=== PATIENT | male | born 1950 | race Caucasian/White ===

== ENCOUNTER 2017-06-21 10:45 | Inpatient (IN) | payer OTHER ==
[2017-06-21 11:49] VITALS: BMI 24.2
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
[2017-06-21] MEDS ORDERED: hydrOXYzine PAMOATE 50 MG CAPSULE (FP) PO PRN (16:06)
[2017-06-21] MEDS ORDERED: ACETAMINOPHEN 325 MG TABLET (FP) PO PRN (16:06)
[2017-06-21] MEDS ORDERED: MAG HYDROX/AL HYDROX/SIMETH 30 ML UNIT-DOSE CUP PO PRN (16:06)
[2017-06-21] MEDS ORDERED: MENTHOL/PHENOL 1 EACH UD MM PRN (16:06)
[2017-06-21] MEDS ORDERED: guaiFENesin/D-METHORPHAN HB 10 ML UNIT-DOSE CUPS PO PRN (16:06)
[2017-06-21] MEDS ORDERED: IBUPROFEN 400 MG TABLET (FP) PO PRN (16:06)
[2017-06-21] MEDS ORDERED: MAGNESIUM CITRATE 300 ML BOTTLE PO PRN (16:06)
[2017-06-21] MEDS ORDERED: MAGNESIUM HYDROX 2400MG/30ML ORAL SUSPENSION 30 ML CUP PO PRN (16:06)
[2017-06-21] MEDS ORDERED: P-EPHED 60MG/TRIPROLIDI 2.5MG TABLET PO PRN (16:06)
[2017-06-21 21:56] LABS: URINE APPEARANCE CLEAR; URINE BILIRUBIN NEGATIVE (NEGATIVE); URINE BLOOD NEGATIVE (NEGATIVE); URINE COLOR YELLOW; URINE GLUCOSE (UA) NEGATIVE (NEGATIVE); URINE KETONE NEGATIVE (NEGATIVE); URINE LEUK ESTERASE TRACE (NEGATIVE); URINE NITRITE NEGATIVE (NEGATIVE); URINE PROTEIN NEGATIVE (NEGATIVE); URINE UROBILINOGEN NEGATIVE mg/dL (0.2-1.0)
[2017-06-21 22:12] LABS: URINE BACTERIA RARE /hpf (NONE SEEN); URINE MUCUS RARE; URINE RBC 1 /hpf (0-3); URINE WBC 1 /hpf (3-5)
[2017-06-21] MEDS: THIAMINE HCL 100 MG TABLET (FP) PO SCH (23:21)
[2017-06-22] MEDS: LOPERAMIDE HCL 2 MG CAPSULE PO PRN ×2 (06:38→21:06)
[2017-06-22] MEDS ORDERED: METHADONE HCL 10 MG TABLET PO ONE (07:34)
[2017-06-22] MEDS ORDERED: METHADONE HCL 10 MG TABLET ONE (08:25)
[2017-06-22] MEDS ORDERED: METHADONE HCL 40 MG DISPERSABLE TABLET ONE (08:26)
[2017-06-22] MEDS: METHADONE 80 MG, METHADONE 20 MG PO SCH (08:27)
[2017-06-22] MEDS: PRENATAL VITAMINS W/ FOLIC ACID TABLET (FP) PO SCH (09:40)
[2017-06-22] MEDS: NICOTINE 21 MG/24 HOURS TOPICAL PATCH TD SCH (09:41)
[2017-06-22 10:41] LABS: MCH 30.8 pg (25.7-33.7); MCHC 33.2 g/dl (32.0-35.9); MEAN CELL VOLUME 92.9 fl (80-96); MEAN PLT VOLUME 11.1 fl (7.5-11.1); PLATELET COUNT 127 K/MM3 (134-434); RDW 13.6 % (11.9-15.9); WHITE BLOOD COUNT 5.5 K/mm3 (4.0-10.0)
[2017-06-22 10:56] LABS: ALBUMIN 3.5 g/dl (3.4-5.0); ALK PHOS 91 U/L (45-117); ANION GAP 6 (8-16); BILIRUBIN,TOTAL 0.4 mg/dL (0.2-1.0); CO2 28 mmol/L (21-32); CREATININE 0.9 mg/dL (0.7-1.3); GLUCOSE,RANDOM 90 mg/dL (74-106); SGOT/AST 22 U/L (15-37); SGPT/ALT 16 U/L (12-78); TOT PROT 8.1 g/dl (6.4-8.2)
[2017-06-22] MEDS: THIAMINE HCL 100 MG TABLET (FP) PO SCH (21:04)
[2017-06-22] MEDS: diphenhydrAMINE HCL 50 MG CAPSULE PO PRN (21:05)
[2017-06-23] MEDS ORDERED: METHADONE HCL 40 MG DISPERSABLE TABLET ONE (03:01)
[2017-06-23] MEDS ORDERED: METHADONE HCL 10 MG TABLET ONE (03:01)
[2017-06-23] MEDS ORDERED: METHADONE HCL 10 MG TABLET PO SCH (06:00)
[2017-06-23] MEDS: METHADONE 80 MG, METHADONE 20 MG PO SCH (06:30)
[2017-06-23] MEDS: LOPERAMIDE HCL 2 MG CAPSULE PO PRN ×2 (06:32→21:07)
[2017-06-23] MEDS: NICOTINE 21 MG/24 HOURS TOPICAL PATCH TD SCH (09:45)
[2017-06-23] MEDS: PRENATAL VITAMINS W/ FOLIC ACID TABLET (FP) PO SCH (09:45)
[2017-06-23] MEDS: NICOTINE POLACRILEX 4 MG GUM BUC PRN (09:47)
[2017-06-23] MEDS: diphenhydrAMINE HCL 50 MG CAPSULE PO PRN (21:07)
[2017-06-23] MEDS: THIAMINE HCL 100 MG TABLET (FP) PO SCH (21:07)
[2017-06-24] MEDS ORDERED: METHADONE HCL 10 MG TABLET ONE (03:12)
[2017-06-24] MEDS ORDERED: METHADONE HCL 40 MG DISPERSABLE TABLET ONE (03:13)
[2017-06-24] MEDS: METHADONE 80 MG, METHADONE 20 MG PO SCH (06:21)
[2017-06-24] MEDS: PRENATAL VITAMINS W/ FOLIC ACID TABLET (FP) PO SCH (09:41)
[2017-06-24] MEDS: NICOTINE 21 MG/24 HOURS TOPICAL PATCH TD SCH (09:41)
[2017-06-24] MEDS: NICOTINE POLACRILEX 4 MG GUM BUC PRN (09:42)
--- NOTE | 2017-06-24 09:59 | EKG ---
Test Reason : Blood Pressure : / mmHG Vent. Rate : 065 BPM Atrial Rate : 065 BPM P-R Int : 136 ms QRS Dur : 084 ms QT Int : 430 ms P-R-T Axes : 079 070 050 degrees QTc Int : 447 ms NORMAL SINUS RHYTHM NORMAL ECG NO PREVIOUS ECGS AVAILABLE Confirmed by THEA TOVAR MD ([id number]) on 06/24/2017 9:59:03 AM Referred By: Confirmed By:THEA TOVAR MD
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
[2017-06-24] MEDS: THIAMINE HCL 100 MG TABLET (FP) PO SCH (21:06)
[2017-06-24] MEDS: LOPERAMIDE HCL 2 MG CAPSULE PO PRN (21:07)
[2017-06-25] MEDS ORDERED: METHADONE HCL 10 MG TABLET ONE (03:16)
[2017-06-25] MEDS ORDERED: METHADONE HCL 40 MG DISPERSABLE TABLET ONE (03:16)
[2017-06-25] MEDS: METHADONE 80 MG, METHADONE 20 MG PO SCH (06:06)
[2017-06-25] MEDS: PRENATAL VITAMINS W/ FOLIC ACID TABLET (FP) PO SCH (10:14)
[2017-06-25] MEDS: NICOTINE 21 MG/24 HOURS TOPICAL PATCH TD SCH ×2 (10:14→10:17)
[2017-06-25] MEDS: THIAMINE HCL 100 MG TABLET (FP) PO SCH (21:10)
[2017-06-25] MEDS: diphenhydrAMINE HCL 50 MG CAPSULE PO PRN (21:11)
[2017-06-26] MEDS ORDERED: METHADONE HCL 40 MG DISPERSABLE TABLET ONE (03:24)
[2017-06-26] MEDS ORDERED: METHADONE HCL 10 MG TABLET ONE (03:24)
[2017-06-26] MEDS: METHADONE 80 MG, METHADONE 20 MG PO SCH (06:31)
[2017-06-26] MEDS: PRENATAL VITAMINS W/ FOLIC ACID TABLET (FP) PO SCH (09:41)
[2017-06-26] MEDS: NICOTINE 21 MG/24 HOURS TOPICAL PATCH TD SCH (09:42)
[2017-06-26] MEDS: NICOTINE POLACRILEX 4 MG GUM BUC PRN (09:44)
[2017-06-26] MEDS: diphenhydrAMINE HCL 50 MG CAPSULE PO PRN (21:19)
[2017-06-26] MEDS: THIAMINE HCL 100 MG TABLET (FP) PO SCH (21:19)
[2017-06-26] MEDS: LOPERAMIDE HCL 2 MG CAPSULE PO PRN (22:08)
[2017-06-27] MEDS ORDERED: METHADONE HCL 40 MG DISPERSABLE TABLET ONE (05:00)
[2017-06-27] MEDS ORDERED: METHADONE HCL 10 MG TABLET ONE (05:00)
[2017-06-27] MEDS: METHADONE 80 MG, METHADONE 20 MG PO SCH (06:28)
[2017-06-27] MEDS: PRENATAL VITAMINS W/ FOLIC ACID TABLET (FP) PO SCH (09:46)
[2017-06-27] MEDS: NICOTINE 21 MG/24 HOURS TOPICAL PATCH TD SCH (09:46)
[2017-06-27] MEDS: NICOTINE POLACRILEX 4 MG GUM BUC PRN (09:47)
[2017-06-27] MEDS: THIAMINE HCL 100 MG TABLET (FP) PO SCH (21:09)
[2017-06-27] MEDS: diphenhydrAMINE HCL 50 MG CAPSULE PO PRN (21:10)
[2017-06-28] MEDS ORDERED: METHADONE HCL 10 MG TABLET ONE (04:06)
[2017-06-28] MEDS ORDERED: METHADONE HCL 40 MG DISPERSABLE TABLET ONE (04:06)
[2017-06-28] MEDS: METHADONE 80 MG, METHADONE 20 MG PO SCH (06:20)
[2017-06-28] MEDS: PRENATAL VITAMINS W/ FOLIC ACID TABLET (FP) PO SCH (09:28)
[2017-06-28] MEDS: NICOTINE 21 MG/24 HOURS TOPICAL PATCH TD SCH (09:28)
[2017-06-28] MEDS: THIAMINE HCL 100 MG TABLET (FP) PO SCH (21:06)
[2017-06-28] MEDS: diphenhydrAMINE HCL 50 MG CAPSULE PO PRN (21:07)
[2017-06-29] MEDS ORDERED: METHADONE HCL 10 MG TABLET PO SCH (06:00)
[2017-06-29] MEDS ORDERED: METHADONE HCL 10 MG TABLET ONE (06:15)
[2017-06-29] MEDS ORDERED: METHADONE HCL 40 MG DISPERSABLE TABLET ONE (06:16)
[2017-06-29] MEDS: METHADONE 80 MG, METHADONE 20 MG PO SCH (06:41)
[2017-06-29] MEDS: NICOTINE 21 MG/24 HOURS TOPICAL PATCH TD SCH (09:42)
[2017-06-29] MEDS: PRENATAL VITAMINS W/ FOLIC ACID TABLET (FP) PO SCH (09:42)
[2017-06-29] MEDS: diphenhydrAMINE HCL 50 MG CAPSULE PO PRN (21:47)
[2017-06-29] MEDS: THIAMINE HCL 100 MG TABLET (FP) PO SCH (21:48)
[2017-06-30] MEDS ORDERED: METHADONE HCL 10 MG TABLET ONE (05:11)
[2017-06-30] MEDS ORDERED: METHADONE HCL 40 MG DISPERSABLE TABLET ONE (05:11)
[2017-06-30] MEDS: METHADONE 80 MG, METHADONE 20 MG PO SCH (06:19)
[2017-06-30] MEDS: PRENATAL VITAMINS W/ FOLIC ACID TABLET (FP) PO SCH (09:52)
[2017-06-30] MEDS: NICOTINE 21 MG/24 HOURS TOPICAL PATCH TD SCH (09:52)
[2017-06-30] MEDS: THIAMINE HCL 100 MG TABLET (FP) PO SCH (21:05)
[2017-06-30] MEDS: diphenhydrAMINE HCL 50 MG CAPSULE PO PRN (21:06)
[2017-07-01] MEDS ORDERED: METHADONE HCL 10 MG TABLET ONE (03:13)
[2017-07-01] MEDS ORDERED: METHADONE HCL 40 MG DISPERSABLE TABLET ONE (03:14)
[2017-07-01] MEDS: METHADONE 80 MG, METHADONE 20 MG PO SCH (06:29)
[2017-07-01] MEDS: NICOTINE 21 MG/24 HOURS TOPICAL PATCH TD SCH (09:58)
[2017-07-01] MEDS: PRENATAL VITAMINS W/ FOLIC ACID TABLET (FP) PO SCH (09:58)
[2017-07-01] MEDS: LOPERAMIDE HCL 2 MG CAPSULE PO PRN ×2 (14:20→21:05)
[2017-07-01] MEDS: THIAMINE HCL 100 MG TABLET (FP) PO SCH (21:05)
[2017-07-01] MEDS: diphenhydrAMINE HCL 50 MG CAPSULE PO PRN (21:05)
[2017-07-02] MEDS ORDERED: METHADONE HCL 10 MG TABLET ONE (03:36)
[2017-07-02] MEDS ORDERED: METHADONE HCL 40 MG DISPERSABLE TABLET ONE (03:37)
[2017-07-02] MEDS: METHADONE 80 MG, METHADONE 20 MG PO SCH (06:48)
[2017-07-02] MEDS: NICOTINE 21 MG/24 HOURS TOPICAL PATCH TD SCH (09:53)
[2017-07-02] MEDS: PRENATAL VITAMINS W/ FOLIC ACID TABLET (FP) PO SCH (09:54)
[2017-07-02] MEDS: THIAMINE HCL 100 MG TABLET (FP) PO SCH (21:10)
[2017-07-02] MEDS: diphenhydrAMINE HCL 50 MG CAPSULE PO PRN (21:11)
[2017-07-03] MEDS ORDERED: METHADONE HCL 10 MG TABLET ONE (03:14)
[2017-07-03] MEDS ORDERED: METHADONE HCL 40 MG DISPERSABLE TABLET ONE (03:15)
[2017-07-03] MEDS: METHADONE 80 MG, METHADONE 20 MG PO SCH (06:44)
[2017-07-03] MEDS: NICOTINE 21 MG/24 HOURS TOPICAL PATCH TD SCH (10:00)
[2017-07-03] MEDS: PRENATAL VITAMINS W/ FOLIC ACID TABLET (FP) PO SCH (10:00)
[2017-07-03] MEDS: THIAMINE HCL 100 MG TABLET (FP) PO SCH (21:05)
[2017-07-03] MEDS: diphenhydrAMINE HCL 50 MG CAPSULE PO PRN (21:05)
[2017-07-04] MEDS: diphenhydrAMINE HCL 50 MG CAPSULE PO PRN ×2 (01:55→21:07)
[2017-07-04] MEDS ORDERED: METHADONE HCL 10 MG TABLET ONE (03:12)
[2017-07-04] MEDS ORDERED: METHADONE HCL 40 MG DISPERSABLE TABLET ONE (03:12)
[2017-07-04] MEDS: METHADONE 80 MG, METHADONE 20 MG PO SCH (06:34)
[2017-07-04] MEDS: NICOTINE POLACRILEX 4 MG GUM BUC PRN (09:05)
[2017-07-04] MEDS: NICOTINE 21 MG/24 HOURS TOPICAL PATCH TD SCH (09:42)
[2017-07-04] MEDS: PRENATAL VITAMINS W/ FOLIC ACID TABLET (FP) PO SCH (09:42)
[2017-07-04] MEDS: THIAMINE HCL 100 MG TABLET (FP) PO SCH (21:07)
[2017-07-05] MEDS ORDERED: METHADONE HCL 40 MG DISPERSABLE TABLET ONE (05:01)
[2017-07-05] MEDS ORDERED: METHADONE HCL 10 MG TABLET ONE (05:01)
[2017-07-05] MEDS: METHADONE 80 MG, METHADONE 20 MG PO SCH (06:35)
[2017-07-05] MEDS: NICOTINE 21 MG/24 HOURS TOPICAL PATCH TD SCH (09:37)
[2017-07-05] MEDS: PRENATAL VITAMINS W/ FOLIC ACID TABLET (FP) PO SCH (09:37)
[2017-07-05] MEDS: THIAMINE HCL 100 MG TABLET (FP) PO SCH (21:06)
[2017-07-05] MEDS: diphenhydrAMINE HCL 50 MG CAPSULE PO PRN (21:06)
[2017-07-06] MEDS ORDERED: METHADONE HCL 10 MG TABLET ONE (03:01)
[2017-07-06] MEDS ORDERED: METHADONE HCL 40 MG DISPERSABLE TABLET ONE (03:02)
[2017-07-06] MEDS: METHADONE 80 MG, METHADONE 20 MG PO SCH (06:18)
[2017-07-06] MEDS: PRENATAL VITAMINS W/ FOLIC ACID TABLET (FP) PO SCH (09:33)
[2017-07-06] MEDS: NICOTINE 21 MG/24 HOURS TOPICAL PATCH TD SCH (09:33)
[2017-07-06] MEDS: diphenhydrAMINE HCL 50 MG CAPSULE PO PRN (21:18)
[2017-07-06] MEDS: THIAMINE HCL 100 MG TABLET (FP) PO SCH (21:18)
[2017-07-07] MEDS ORDERED: METHADONE HCL 10 MG TABLET ONE (03:40)
[2017-07-07] MEDS ORDERED: METHADONE HCL 40 MG DISPERSABLE TABLET ONE (03:41)
[2017-07-07] MEDS: METHADONE 80 MG, METHADONE 20 MG PO SCH (06:35)
[2017-07-07] MEDS: PRENATAL VITAMINS W/ FOLIC ACID TABLET (FP) PO SCH (09:42)
[2017-07-07] MEDS: NICOTINE 21 MG/24 HOURS TOPICAL PATCH TD SCH (09:42)
[2017-07-07] MEDS: NICOTINE POLACRILEX 4 MG GUM BUC PRN (09:43)
[2017-07-07] MEDS: diphenhydrAMINE HCL 50 MG CAPSULE PO PRN (21:10)
[2017-07-07] MEDS: THIAMINE HCL 100 MG TABLET (FP) PO SCH (21:10)
[2017-07-08] MEDS ORDERED: METHADONE HCL 10 MG TABLET ONE (03:39)
[2017-07-08] MEDS ORDERED: METHADONE HCL 40 MG DISPERSABLE TABLET ONE (03:40)
[2017-07-08] MEDS: METHADONE 80 MG, METHADONE 20 MG PO SCH (06:38)
[2017-07-08 06:57] VITALS: BP 138/82; PULSE 74; TEMP 98.1
--- NOTE | 2017-07-08 09:47 | PN ---
Psychiatric Progress Note Vital Signs: Vital Signs Period Temp Pulse Resp BP Sys/Khan Pulse Ox Last 24 Hr 98.1 F 74 18-18 138/82 Date of Session: 07/08/17 Chief Complaint:: Discharge visit HPI: Patient addressed Opioid and Cocaine dependence . ROS: Significant for Hep C. Current Medications: Active Medications Generic Name Dose Route Start Last Admin Trade Name Freq PRN Reason Stop Dose Admin Acetaminophen 650 mg 06/21/17 16:06 Tylenol - PO Q4H PRN PAIN Al Hydroxide/Mg Hydroxide 30 ml 06/21/17 16:06 Mylanta Oral Suspension - PO Q6H PRN DYSPEPSIA Diphenhydramine HCl 50 mg 06/21/17 16:06 07/07/17 21:10 Benadryl - PO 50 mg HSMR1 PRN Administration INSOMNIA Eucalyptus/Menthol/Phenol/Sorbitol 1 each 06/21/17 16:06 Cepastat Lozenge - MM Q4H PRN SORE THROAT Guaifenesin 10 ml 06/21/17 16:06 Robitussin Dm - PO Q6H PRN COUGH Hydroxyzine Pamoate 50 mg 06/21/17 16:06 Vistaril - PO Q4H PRN AGITATION Ibuprofen 400 mg 06/21/17 16:06 06/26/17 09:43 Motrin - PO 400 mg Q6H PRN Administration SEVERE PAIN Loperamide HCl 4 mg 06/21/17 16:06 07/01/17 21:05 Imodium - PO 4 mg Q6H PRN Administration DIARRHEA Magnesium Citrate 300 ml 06/21/17 16:06 Citroma - PO Q48H PRN CONSTIPATION Magnesium Hydroxide 30 ml 06/21/17 16:06 Milk Of Magnesia - PO DAILY PRN CONSTIPATION Methadone HCl 80 mg/ Methadone 100 mg 07/05/17 06:00 07/08/17 06:38 HCl 20 mg PO 100 mg DAILY@0600 GUMARO Administration Nicotine 21 mg 06/22/17 10:00 07/07/17 09:42 Nicoderm Patch - TD 21 mg DAILY GUMARO Administration Nicotine Polacrilex 4 mg 06/21/17 16:06 07/07/17 09:43 Nicorette Gum - BUC 4 mg Q2H PRN Administration NICOTINE REPLACEMENT RX Multivit/Folic Acid/Iron 1 tab 06/22/17 10:00 07/07/17 09:42 Vitamins ([facility]) - PO 1 tab DAILY GUMARO Administration Pseudoephedrine/Triprolidine 1 combo 06/21/17 16:06 Actifed - PO TID PRN NASAL CONGESTION Thiamine HCl 100 mg 06/21/17 22:00 07/07/17 21:10 Vitamin B1 - PO 100 mg HS GUMARO Administration Current Side Effect: No Lab tests ordered: No Lab tests reviewed: Yes Provider note:: Patient completed this program today.he has met his treatment goals and will continue to address his issues on outpatient basis at [facility] outpatient rehabilitation program and [facility]MTP(100 mg po daily).Patient has no known psychiatric comorbidity.no needs for psychotropic medications at this time ,will use Vistaril prn for anxiety,mood instability. Suportive therapy proivided focusing on support and coping skills utlization to maintain recovery. patient is stable for discharge today. Total face to face time:: 20 Mental Status Exam - Mental Status Exam Alert and Oriented to: Time, Place, Person Cognitive Function: Grossly Intact Patient Appearance: Well Groomed Mood: Euthymic Affect: Mood Congruent Patient Behavior: Cooperative Speech Pattern: Clear Voice Loudness: Normal Thought Process: Goal Oriented Thought Disorder: Not Present Hallucinations: Denies Suicidal Ideation: Denies Homicidal Ideation: Denies Insight/Judgement: Fair Sleep: Well Appetite: Good Muscle strength/Tone: Normal Psychiatric Treatment Plan - Problem List (4) Cocaine dependence Qualifiers: Substance use status: uncomplicated Qualified Code(s): F14.20 - Cocaine dependence, uncomplicated (5) Nicotine dependence Qualifiers: Nicotine product type: cigarettes Substance use status: uncomplicated Qualified Code(s): F17.210 - Nicotine dependence, cigarettes, uncomplicated
[2017-07-08] MEDS: PRENATAL VITAMINS W/ FOLIC ACID TABLET (FP) PO SCH (09:53)
[2017-07-08] MEDS: NICOTINE 21 MG/24 HOURS TOPICAL PATCH TD SCH (09:54)
[2017-07-08] MEDS: NICOTINE POLACRILEX 4 MG GUM BUC PRN (09:55)
== END 2017-07-08 10:30 | disposition home or self-care (01) | DRG 895 ==
LOC: YASAS 10:45 → Y5N 16:02
PROVIDERS: ADMIT Psychiatry & Neurology Psychiatry; ATTEND Psychiatry & Neurology Psychiatry
PROC: HZ42ZZZ Group Counseling for Substance Abuse Treatment, Cognitive-Behavioral (ICD-10-PCS; principal; 2017-06-21)
DX: F11.20 Opioid dependence, uncomplicated (principal); F14.20 Cocaine dependence, uncomplicated; F17.210 Nicotine dependence, cigarettes, uncomplicated; B18.2 Chronic viral hepatitis C; R76.11 Nonspecific reaction to tuberculin skin test without active tuberculosis
CPT/HCPCS: 36415; 71020-TC; 80053; 81003; 81015; 85027; 86593; 93005; 93010

== ENCOUNTER 2018-04-04 12:49 | Inpatient (IN) | payer OTHER ==
[2018-04-04 13:55] VITALS: BP 152/66; PULSE 65; TEMP 97.8; BMI 21.6
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
[2018-04-04] MEDS ORDERED: MAGNESIUM HYDROX 2400MG/30ML ORAL SUSPENSION 30 ML CUP PO PRN (15:31)
[2018-04-04] MEDS ORDERED: MAGNESIUM CITRATE 300 ML BOTTLE PO PRN (15:31)
[2018-04-04] MEDS ORDERED: MENTHOL/PHENOL 1 EACH UD MM PRN (15:31)
[2018-04-04] MEDS ORDERED: MAG HYDROX/AL HYDROX/SIMETH 30 ML UNIT-DOSE CUP PO PRN (15:31)
[2018-04-04] MEDS ORDERED: IBUPROFEN 400 MG TABLET (FP) PO PRN (15:31)
[2018-04-04] MEDS ORDERED: LOPERAMIDE HCL 2 MG CAPSULE PO PRN (16:12)
[2018-04-04] MEDS ORDERED: ACETAMINOPHEN 325 MG TABLET (FP) PO PRN (16:12)
[2018-04-04] MEDS ORDERED: guaiFENesin/D-METHORPHAN HB 10 ML UNIT-DOSE CUPS PO PRN (16:12)
[2018-04-04] MEDS ORDERED: P-EPHED 60MG/TRIPROLIDI 2.5MG TABLET PO PRN (16:13)
[2018-04-04] MEDS ORDERED: NICOTINE POLACRILEX 2 MG GUM BUC PRN (16:13)
[2018-04-04] MEDS ORDERED: NICOTINE 14 MG/24 HOURS TOPICAL PATCH TD SCH (16:15)
[2018-04-04] MEDS ORDERED: MELATONIN 5 MG TABLETS PO PRN (22:00)
[2018-04-04] MEDS ORDERED: THIAMINE HCL 100 MG TABLET (FP) PO SCH (22:00)
--- NOTE | 2018-04-05 01:22 | PN ---
[facility] Progress Note Note: Patient in the course vof admission told the nurse that he fell and hit his head on an object. Patient is being transferred to ER for evaluation. Endorsed to Dr. Hope.
[2018-04-05] MEDS ORDERED: PRENATAL VITAMINS W/ FOLIC ACID TABLET (FP) PO SCH (10:00)
== END 2018-04-05 10:47 | disposition home or self-care (01) | DRG 897 ==
LOC: YASAS 12:49 → Y3W 15:46 → UNDOADMIN 15:46 → Y3N 04-05 00:27
PROVIDERS: ADMIT Internal Medicine; ATTEND Internal Medicine
PROC: HZ2ZZZZ Detoxification Services for Substance Abuse Treatment (ICD-10-PCS; principal; 2018-04-05)
DX: F11.20 Opioid dependence, uncomplicated (principal); F14.20 Cocaine dependence, uncomplicated; F17.213 Nicotine dependence, cigarettes, with withdrawal; B18.2 Chronic viral hepatitis C; R76.11 Nonspecific reaction to tuberculin skin test without active tuberculosis; S09.8XXA Other specified injuries of head, initial encounter; W01.198A Fall on same level from slipping, tripping and stumbling with subsequent striking against other object, initial encounter; Y93.89 Activity, other specified; Y92.89 Other specified places as the place of occurrence of the external cause; Y99.8 Other external cause status

== ENCOUNTER 2018-04-05 02:00 | Emergency (ER) | payer OTHER ==
--- NOTE | 2018-04-05 03:04 | PDOC ---
Attending Attestation - Resident Resident Name: Daniel Hope - ED Attending Attestation I have performed the following: I have examined & evaluated the patient, The case was reviewed & discussed with the resident, I agree w/resident's findings & plan - HPI HPI: 04/05/18 03:22 Pt wants to detox from cocaine and heroin. He is also a methadone user on methadone program. Pt has no other complaints. [facility] here has no beds in detox. Next bed will open up in 4 days. - Physicial Exam PE: 04/05/18 03:23 Agree with resident exam. Pt is ambulating about the ER and is afebrile. - Medical Decision Making 04/05/18 03:23 We are calling detox centers around [place] for patient's dispo. 04/05/18 06:22 THIS IS A PRELIMINARY REPORT FROM [facility] DATE OF SERVICE: 2018-04-05 05:53:53 IMAGES: 150 EXAM: HEAD CT WITHOUT CONTRAST HISTORY: Trauma COMPARISON: None. FINDINGS: Brain parenchyma is normal in attenuation with no mass or hematoma. There is no midline shift. Mathias and white matter differentiation is normal. Ventricles are normal. Sulci and extra-axial CSF spaces are normal. Intracranial vascular structures are normal in attenuation. There is no calvarial fracture. Paranasal sinuses are normally aerated. IMPRESSION: Normal head THIS DOCUMENT HAS BEEN ELECTRONICALLY SIGNED 04/05/18 21:34 Pt was sent to [facility] with our security
[2018-04-05 03:08] VITALS: BMI 21.6
[2018-04-05 03:25] LABS: PHENCYCLIDINE,URINE NEGATIVE ng/ml (CUTOFF=25); URINE AMPHETAMINES NEGATIVE ng/ml (CUTOFF=500); URINE BARBITURATES NEGATIVE ng/ml (CUTOFF=200)
[2018-04-05 03:27] LABS: COCAINE, UR POSITIVE ng/ml (CUTOFF=300); OPIATES, URI POSITIVE ng/ml (CUTOFF=300); URINE BENZODIAZEPINES POSITIVE ng/ml (CUTOFF=200)
[2018-04-05 03:28] LABS: METHADONE, UR POSITIVE ng/ml (CUTOFF=300)
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
[2018-04-05 08:51] VITALS: BP 131/72; PULSE 65; TEMP 98
== END 2018-04-05 08:51 | disposition home or self-care (01) ==
LOC: JER 02:00
DX: F10.10 Alcohol abuse, uncomplicated (principal); F11.10 Opioid abuse, uncomplicated; F13.10 Sedative, hypnotic or anxiolytic abuse, uncomplicated; F14.10 Cocaine abuse, uncomplicated; B18.2 Chronic viral hepatitis C; F17.210 Nicotine dependence, cigarettes, uncomplicated
CPT/HCPCS: 70450-TC; 80307; 99283-25

== ENCOUNTER 2018-04-05 10:51 | Inpatient (IN) | payer OTHER ==
[2018-04-05 11:31] VITALS: BMI 21.6
--- NOTE | 2018-04-05 11:50 | HP ---
CIWA Score - CIWA Score Nausea/Vomitin-Mild Nausea/No Vomiting Muscle Tremors: 4-Moderate,w/Arms Extend Anxiety: 4-Mod. Anxious/Guarded Agitation: 1-Slight > Activity Paroxysmal Sweats: 1-Minimal Palms Moist Orientation: 1-Uncertain about Date Tacttile Disturbances: 1-Very Mild Itch/Numbness Auditory Disturbances: 1-Very Mild Visual Disturbances: 1-Very Mild Sensitivity Headache: 1-Very Mild CIWA-Ar Total Score: 16 Admission ROS BHS - HPI Chief Complaint: I can't do it on my own, I need help, I get too sick, I feel sick now, I want to stop drinking and using Allergies/Adverse Reactions: Allergies Allergy/AdvReac Type Severity Reaction Status Date / Time No Known Allergies Allergy Verified 04/05/18 11:24 History of Present Illness: 67 yo gentleman here for detox from alcohol. On methadone program - did not get dosed yet as was in [facility] ED yesterday until this morning due to possible head injury yesterday (cleared in ED with CT scan). Patient denies any seizures. Longest time sober was 19 years - relapsed several weeks ago due to meeting a woman. Previously here in May 2017 for rehab. Exam Limitations: Clinical Condition - Ebola screening Have you traveled outside of the country in the last 21 days: No (N) Have you had contact with anyone from an Ebola affected area: No Have you been sick,other than usual withdrawal symptoms: No Do you have a fever: No - Review of Systems Constitutional: Loss of Appetite, Malaise, Night Sweats, Changes in sleep, Weakness EENT: reports: Blurred Vision Respiratory: reports: No Symptoms reported Cardiac: reports: No Symptoms Reported GI: reports: Poor Appetite, Poor Fluid Intake, Indigestion, Abdominal cramping : reports: Frequency Musculoskeletal: reports: Back Pain, Muscle Pain Integumentary: reports: Dryness Neuro: reports: Headache, Tremors Endocrine: reports: No Symptoms Reported Hematology: reports: No Symptoms Reported Psychiatric: reports: Judgement Intact, Mood/Affect Appropiate, Anxious Other Systems: Reviewed and Negative Patient History - Patient Medical History Hx Anemia: No Hx Asthma: No Hx Chronic Obstructive Pulmonary Disease (COPD): No Hx Cancer: No Hx Cardiac Disorders: No Hx Congestive Heart Failure: No Hx Hypertension: No Hx Hypercholesterolemia: No Hx Pacemaker: No HX Cerebrovascular Accident: No Hx Seizures: No Hx Dementia: No Hx Diabetes: No Hx Gastrointestinal Disorders: No Hx Liver Disease: No Hx Genitourinary Disorders: No Hx Sexually Transmitted Disorders: Yes (GONORHHEA -TREATED. DOES NOT REMEMBER WHEN, MANY YEARS AGO) Hx Renal Disease (ESRD): No Hx Thyroid Disease: No Hx Human Immunodeficiency Virus (HIV): No (negative) Hx Hepatitis C: Yes (treated 6yrs ago) Hx Depression: No Hx Suicide Attempt: No Hx Bipolar Disorder: No Hx Schizophrenia: No - Patient Surgical History Past Surgical History: Yes Hx Neurologic Surgery: No Hx Cataract Extraction: No Hx Cardiac Surgery: No Hx Lung Surgery: No Hx Breast Surgery: No Hx Breast Biopsy: No Hx Abdominal Surgery: No Hx Appendectomy: No Hx Cholecystectomy: No Hx Genitourinary Surgery: No Hx Section: No Hx Orthopedic Surgery: Yes (RIGHT CLAVICLE SURGERY 5-6 YEARS AGO) Anesthesia Reaction: No - PPD History Previous Implant?: Yes Documented Results: Positive w/o proof Implanted On Prior [facility] Admission?: No Date: 06/24/17 (CXR negative) PPD to be Administered?: No - Reproductive History Patient is a Female of Child Bearing Age (11 -55 yrs old): No (male) - Smoking Cessation Smoking history: Current some day smoker Have you smoked in the past 12 months: No Aproximately how many cigarettes per day: 5 Cigars Per Day: 0 Hx Chewing Tobacco Use: No Initiated information on smoking cessation: Yes 'Breaking Loose' booklet given: 04/05/18 (give on floor) - Substance & Tx. History Hx Alcohol Use: Yes Hx Substance Use: Yes Substance Use Type: Alcohol, Cocaine, Heroin Hx Substance Use Treatment: Yes (detox, rehab, methadone program) - Substances Abused Cocaine Route: Inhalation Frequency: Daily Amount used: 4 BAGS DAILY Age of first use: 16 Date of Last Use: 04/04/18 Heroin Route: Inhalation Frequency: Daily Amount used: 5 BAGS DAILY Age of first use: 16 Date of Last Use: 04/04/18 Alcohol Route: Oral Frequency: 3-6 times per week Amount used: 1/2 PINT OF VODKA Age of first use: 24 Date of Last Use: 03/25/18 Family Disease History - Family Disease History Family Disease History: Diabetes: Mother ( heart attack), Heart Disease : Mother, [place]: Father ( prostate), Sister ( breast, drug user), Other: Father, Mother, Brother ( hiv, ivdu), Sister, Son (one - adult - healthy), Daughter (one - adult - healthy) Admission Physical Exam [facility] - Vital Signs Vital Signs: Vital Signs - 24 hr 04/05/18 11:29 Temperature 97.8 F Pulse Rate 80 Respiratory 18 Rate Blood Pressure 133/69 - Physical General Appearance: Yes: Nourished, Appropriately Dressed, Moderate Distress, Tremorous, Anxious HEENTM: Yes: EOMI, Hearing grossly Normal, Normocephalic, Normal Voice, Pharynx Normal Respiratory: Yes: Normal Breath Sounds, No Respiratory Distress Neck: Yes: No masses,lesions,Nodules Breast: Yes: Breast Exam Deferred Cardiology: Yes: Regular Rhythm, Regular Rate Abdominal: Yes: Flat, Soft Genitourinary: Yes: Frequency Back: Yes: Decreased Range of Motion Musculoskeletal: Yes: full range of Motion, Gait Steady Extremities: Yes: Normal Inspection, Normal Range of Motion, Non-Tender Neurological: Yes: Fully Oriented, Alert, Normal Mood/Affect, Normal Response Integumentary: Yes: Normal Color, Dry, Warm Lymphatic: Yes: Within Normal Limits - Diagnostic (1) Alcohol dependence with uncomplicated withdrawal Current Visit: Yes Status: Chronic (2) Nicotine dependence Current Visit: Yes Status: Chronic Qualifiers: Nicotine product type: cigarettes Substance use status: in withdrawal Qualified Code(s): F17.213 - Nicotine dependence, cigarettes, with withdrawal (3) Cocaine dependence Current Visit: Yes Status: Chronic Qualifiers: Substance use status: uncomplicated Qualified Code(s): F14.20 - Cocaine dependence, uncomplicated (4) Methadone maintenance therapy patient Current Visit: Yes Status: Chronic Comment: dose verified by Annita Yarbrough RN - none taken today - [employer] [phone] (5) PPD positive, treated Current Visit: Yes Status: Resolved Comment: cxr 06/24/17 normal Cleared for Admission [facility] - Detox or Rehab [facility] Level of Care: Medically Managed Detox Regimen/Protocol: Librium [facility] Breath Alcohol Content Breath Alcohol Content: 0 Urine Drug Screen - Results Drug Screen Negative: No Urine Drug Screen Results: REBECA-Cocaine, OPI-Opiates, BZO-Benzodiazepines, MTD- Methadone
[2018-04-05] MEDS ORDERED: hydrOXYzine PAMOATE 25 MG CAPSULE (FP) PO PRN (12:11)
[2018-04-05] MEDS ORDERED: chlordiazePOXIDE HCL 25 MG CAPSULE PO PRN (12:11)
[2018-04-05] MEDS ORDERED: MAGNESIUM CITRATE 300 ML BOTTLE PO PRN (12:11)
[2018-04-05] MEDS ORDERED: LOPERAMIDE HCL 2 MG CAPSULE PO PRN (12:11)
[2018-04-05] MEDS ORDERED: MENTHOL/PHENOL 1 EACH UD MM PRN (12:11)
[2018-04-05] MEDS ORDERED: guaiFENesin/D-METHORPHAN HB 10 ML UNIT-DOSE CUPS PO PRN (12:11)
[2018-04-05] MEDS ORDERED: ACETAMINOPHEN 325 MG TABLET (FP) PO PRN (12:11)
[2018-04-05] MEDS ORDERED: MAG HYDROX/AL HYDROX/SIMETH 30 ML UNIT-DOSE CUP PO PRN (12:11)
[2018-04-05] MEDS ORDERED: IBUPROFEN 400 MG TABLET (FP) PO PRN (12:11)
[2018-04-05] MEDS ORDERED: MAGNESIUM HYDROX 2400MG/30ML ORAL SUSPENSION 30 ML CUP PO PRN (12:11)
[2018-04-05] MEDS ORDERED: P-EPHED 60MG/TRIPROLIDI 2.5MG TABLET PO PRN (12:11)
[2018-04-05] MEDS ORDERED: NICOTINE POLACRILEX 4 MG GUM BUC PRN (12:11)
[2018-04-05] MEDS ORDERED: METHADONE HCL 10 MG TABLET PO SCH (12:15)
[2018-04-05] MEDS ORDERED: METHADONE HCL 10 MG TABLET ONE (13:26)
[2018-04-05] MEDS ORDERED: METHADONE HCL 40 MG DISPERSABLE TABLET ONE (13:26)
[2018-04-05] MEDS: METHADONE 80 MG, METHADONE 20 MG PO SCH (13:28)
[2018-04-05] MEDS ORDERED: chlordiazePOXIDE HCL 25 MG CAPSULE PO ONE (13:30)
[2018-04-05] MEDS ORDERED: METHADONE 80 MG, METHADONE 20 MG PO SCH (13:30)
[2018-04-05 16:52] LABS: URINE APPEARANCE CLEAR; URINE BILIRUBIN NEGATIVE (<2.0 mg/dL); URINE COLOR STRAW; URINE GLUCOSE (UA) NEGATIVE (NEGATIVE); URINE KETONE NEGATIVE (NEGATIVE); URINE LEUK ESTERASE TRACE (NEGATIVE); URINE NITRITE NEGATIVE (NEGATIVE); URINE PROTEIN NEGATIVE (NEGATIVE)
[2018-04-05] MEDS: chlordiazePOXIDE HCL 25 MG CAPSULE PO SCH ×2 (17:42→22:25)
[2018-04-05] MEDS ORDERED: MELATONIN 5 MG TABLETS PO PRN (22:00)
[2018-04-05] MEDS: THIAMINE HCL 100 MG TABLET (FP) PO SCH (22:25)
[2018-04-06] MEDS: chlordiazePOXIDE HCL 25 MG CAPSULE PO SCH ×4 (06:01→22:31)
[2018-04-06] MEDS ORDERED: METHADONE HCL 40 MG DISPERSABLE TABLET ONE (08:57)
[2018-04-06] MEDS ORDERED: METHADONE HCL 10 MG TABLET ONE (08:57)
[2018-04-06 10:17] LABS: HEMATOCRIT 31.9 % (35.4-49); HEMOGLOBIN 10.9 GM/dL (11.7-16.9); MCH 31.3 pg (25.7-33.7); MCHC 34.1 g/dl (32.0-35.9); MEAN CELL VOLUME 91.7 fl (80-96); MEAN PLT VOLUME 10.7 fl (7.5-11.1); PLATELET COUNT 153 K/MM3 (134-434); RBC 3.48 M/mm3 (4.00-5.60); RDW 13.8 % (11.9-15.9); WHITE BLOOD COUNT 5.3 K/mm3 (4.0-10.0)
[2018-04-06 10:23] LABS: CHLORIDE 104 mmol/L (98-107); SODIUM 141 mmol/L (136-145)
[2018-04-06 10:34] LABS: ALBUMIN 2.7 g/dl (3.4-5.0); ALK PHOS 81 U/L (45-117); ANION GAP 5 (8-16); BILIRUBIN,TOTAL 0.2 mg/dL (0.2-1.0); BLOOD UREA NITROGEN 11 mg/dL (7-18); CALCIUM 8.1 mg/dL (8.5-10.1); CO2 32 mmol/L (21-32); CREATININE 0.8 mg/dL (0.7-1.3); GLUCOSE,RANDOM 114 mg/dL (74-106); SGOT/AST 14 U/L (15-37); SGPT/ALT 12 U/L (12-78); TOT PROT 7.2 g/dl (6.4-8.2)
[2018-04-06] MEDS: METHADONE 80 MG, METHADONE 20 MG PO SCH (10:37)
[2018-04-06] MEDS: PRENATAL VITAMINS W/ FOLIC ACID TABLET (FP) PO SCH (10:37)
--- NOTE | 2018-04-06 13:27 | EKG ---
Test Reason : Blood Pressure : / mmHG Vent. Rate : 062 BPM Atrial Rate : 062 BPM P-R Int : 130 ms QRS Dur : 086 ms QT Int : 434 ms P-R-T Axes : 076 058 055 degrees QTc Int : 440 ms SINUS RHYTHM WITH PREMATURE ATRIAL COMPLEXES OTHERWISE NORMAL ECG WHEN COMPARED WITH ECG OF 21-JUN-2017 21:38, PREMATURE ATRIAL COMPLEXES ARE NOW PRESENT Confirmed by CARMEN HAYES, PANKAJ ([id number]) on 04/06/2018 1:27:32 PM Referred By: Confirmed By:PANKAJ MORALES MD
--- NOTE | 2018-04-06 14:54 | PN ---
[facility] CIWA - CIWA Score Nausea/Vomitin-No Nausea/No Vomiting Muscle Tremors: 4-Moderate,w/Arms Extend Anxiety: 4-Mod. Anxious/Guarded Agitation: 4-Moderately Restless Paroxysmal Sweats: 1-Minimal Palms Moist Orientation: 0-Oriented Tacttile Disturbances: 0-None Auditory Disturbances: 0-None Visual Disturbances: 0-None Headache: 0-None Present CIWA-Ar Total Score: 13 S Progress Note (SOAP) Subjective: ANXIETY,TREMORS,SWEATS, ABDOMINAL CRAMPS. Objective: 04/06/18 14:52 Vital Signs 04/06/18 10:46 Temperature 96.7 F L Pulse Rate 74 Respiratory 18 Rate Blood Pressure 124/74 Laboratory Tests 04/05/18 04/06/18 04/06/18 09:15 08:00 08:00 WBC 5.3 RBC 3.48 L Hgb 10.9 L Hct 31.9 L MCV 91.7 MCH 31.3 MCHC 34.1 RDW 13.8 Plt Count 153 D MPV 10.7 Sodium 141 Potassium 4.0 Chloride 104 Carbon Dioxide 32 Anion Gap 5 L BUN 11 D Creatinine 0.8 Creat Clearance w eGFR > 60 Random Glucose 114 H D Calcium 8.1 L Total Bilirubin 0.2 D AST 14 L D ALT 12 D Alkaline Phosphatase 81 Total Protein 7.2 Albumin 2.7 L D Urine Color Straw Urine Appearance Clear Urine pH 8.0 D Ur Specific [place] 1.005 Urine Protein Negative Urine Glucose (UA) Negative Urine Ketones Negative Urine Blood Negative Urine Nitrite Negative Urine Bilirubin Negative Urine Urobilinogen 2.0 Ur Leukocyte Esterase Trace Urine WBC (Auto) 2 Urine RBC (Auto) <1 RPR Titer 04/06/18 08:00 WBC RBC Hgb Hct MCV MCH MCHC RDW Plt Count MPV Sodium Potassium Chloride Carbon Dioxide Anion Gap BUN Creatinine Creat Clearance w eGFR Random Glucose Calcium Total Bilirubin AST ALT Alkaline Phosphatase Total Protein Albumin Urine Color Urine Appearance Urine pH Ur Specific [place] Urine Protein Urine Glucose (UA) Urine Ketones Urine Blood Urine Nitrite Urine Bilirubin Urine Urobilinogen Ur Leukocyte Esterase Urine WBC (Auto) Urine RBC (Auto) RPR Titer Nonreactive Assessment: 04/06/18 14:53 WITHDRAWAL SX ANEMIA Plan: CONTINUE DETOX FEOSOL 325 MG PO DAILY
[2018-04-06] MEDS: FERROUS SO4 325 MG TABLET (FP) PO SCH (17:55)
[2018-04-06] MEDS: THIAMINE HCL 100 MG TABLET (FP) PO SCH (22:31)
[2018-04-07] MEDS: chlordiazePOXIDE HCL 25 MG CAPSULE PO SCH ×2 (06:57→12:09)
[2018-04-07] MEDS ORDERED: METHADONE HCL 10 MG TABLET ONE (08:46)
[2018-04-07] MEDS ORDERED: METHADONE HCL 40 MG DISPERSABLE TABLET ONE (08:47)
[2018-04-07] MEDS: METHADONE 80 MG, METHADONE 20 MG PO SCH (10:30)
[2018-04-07] MEDS: FERROUS SO4 325 MG TABLET (FP) PO SCH (10:31)
[2018-04-07] MEDS: PRENATAL VITAMINS W/ FOLIC ACID TABLET (FP) PO SCH (10:31)
--- NOTE | 2018-04-07 15:31 | PN ---
S CIWA - CIWA Score Nausea/Vomitin Muscle Tremors: 3 Anxiety: 3 Agitation: 3 Paroxysmal Sweats: 2 Orientation: 0-Oriented Tacttile Disturbances: 0-None Auditory Disturbances: 0-None Visual Disturbances: 0-None Headache: 0-None Present CIWA-Ar Total Score: 14 BHS Progress Note (SOAP) Subjective: Sweats shakes sleep disturbance Objective: 04/07/18 15:31 a & o X 3 NOT IN ACUTE DISTRESS Vital Signs Temperature 96.1 F L 04/07/18 07:31 Pulse Rate 74 04/07/18 07:31 Respiratory Rate 18 04/07/18 07:31 Blood Pressure 101/55 04/07/18 07:31 O2 Sat by Pulse Oximetry (%) Assessment: 04/07/18 15:31 withdrawal sx Plan: continue detox Continue FESO4 Continue hydration
[2018-04-07] MEDS: chlordiazePOXIDE 5 MG CAPSULE PO SCH ×2 (18:02→22:23)
[2018-04-07] MEDS: THIAMINE HCL 100 MG TABLET (FP) PO SCH (22:23)
[2018-04-08] MEDS: chlordiazePOXIDE 5 MG CAPSULE PO SCH ×2 (06:49→10:39)
[2018-04-08] MEDS: FERROUS SO4 325 MG TABLET (FP) PO SCH (07:38)
[2018-04-08] MEDS ORDERED: METHADONE HCL 10 MG TABLET ONE (09:01)
[2018-04-08] MEDS ORDERED: METHADONE HCL 40 MG DISPERSABLE TABLET ONE (09:02)
[2018-04-08] MEDS: PRENATAL VITAMINS W/ FOLIC ACID TABLET (FP) PO SCH (10:39)
--- NOTE | 2018-04-08 10:46 | PN ---
BHS Progress Note (SOAP) Subjective: Stomach Cramping, Body Aches, Fatigue, Interrupted Sleep. Objective: PATIENT A & O X 2 (UNCERTAIN ABOUT CURRENT DAY / DATE). NO ACUTE DISTRESS. 04/08/18 10:46 Vital Signs Temperature 96.7 F L 04/08/18 09:31 Pulse Rate 94 H 04/08/18 09:31 Respiratory Rate 18 04/08/18 09:31 Blood Pressure 82/56 04/08/18 09:31 O2 Sat by Pulse Oximetry (%) Laboratory Tests 04/05/18 04/06/18 04/06/18 09:15 08:00 08:00 WBC 5.3 RBC 3.48 L Hgb 10.9 L Hct 31.9 L MCV 91.7 MCH 31.3 MCHC 34.1 RDW 13.8 Plt Count 153 D MPV 10.7 Sodium 141 Potassium 4.0 Chloride 104 Carbon Dioxide 32 Anion Gap 5 L BUN 11 D Creatinine 0.8 Creat Clearance w eGFR > 60 Random Glucose 114 H D Calcium 8.1 L Total Bilirubin 0.2 D AST 14 L D ALT 12 D Alkaline Phosphatase 81 Total Protein 7.2 Albumin 2.7 L D Urine Color Straw Urine Appearance Clear Urine pH 8.0 D Ur Specific [place] 1.005 Urine Protein Negative Urine Glucose (UA) Negative Urine Ketones Negative Urine Blood Negative Urine Nitrite Negative Urine Bilirubin Negative Urine Urobilinogen 2.0 Ur Leukocyte Esterase Trace Urine WBC (Auto) 2 Urine RBC (Auto) <1 RPR Titer 04/06/18 08:00 WBC RBC Hgb Hct MCV MCH MCHC RDW Plt Count MPV Sodium Potassium Chloride Carbon Dioxide Anion Gap BUN Creatinine Creat Clearance w eGFR Random Glucose Calcium Total Bilirubin AST ALT Alkaline Phosphatase Total Protein Albumin Urine Color Urine Appearance Urine pH Ur Specific [place] Urine Protein Urine Glucose (UA) Urine Ketones Urine Blood Urine Nitrite Urine Bilirubin Urine Urobilinogen Ur Leukocyte Esterase Urine WBC (Auto) Urine RBC (Auto) RPR Titer Nonreactive LABS NOTED. Assessment: 04/08/18 10:47 WITHDRAWAL SYMPTOMS. Plan: CONTINUE DETOX. INCREASE DAILY PO FLUID INTAKE ([facility] FOR BEDSIDE). ENCOURAGE AMBULATION.
[2018-04-08] MEDS: METHADONE 80 MG, METHADONE 20 MG PO SCH (13:11)
[2018-04-08] MEDS: chlordiazePOXIDE HCL 10 MG CAPSULE PO SCH ×2 (17:57→22:23)
[2018-04-08] MEDS: THIAMINE HCL 100 MG TABLET (FP) PO SCH (22:24)
[2018-04-09] MEDS: chlordiazePOXIDE HCL 10 MG CAPSULE PO SCH ×2 (05:39→10:50)
[2018-04-09] MEDS: FERROUS SO4 325 MG TABLET (FP) PO SCH (07:09)
[2018-04-09] MEDS ORDERED: METHADONE HCL 10 MG TABLET ONE (09:57)
[2018-04-09] MEDS ORDERED: METHADONE HCL 40 MG DISPERSABLE TABLET ONE (09:57)
[2018-04-09] MEDS: METHADONE 80 MG, METHADONE 20 MG PO SCH (10:49)
[2018-04-09] MEDS: PRENATAL VITAMINS W/ FOLIC ACID TABLET (FP) PO SCH (10:50)
--- NOTE | 2018-04-09 14:02 | PN ---
BHS Progress Note (SOAP) Subjective: Patient reports chills and poor appetite. Patient denies any other current Detox symptoms. Objective: PATIENT A & O X 3, OBSERVED AMBULATING ON UNIT. NO ACUTE DISTRESS. 04/09/18 14:01 Vital Signs Temperature 97.2 F L 04/09/18 09:43 Pulse Rate 67 04/09/18 09:43 Respiratory Rate 18 04/09/18 09:43 Blood Pressure 99/55 04/09/18 09:43 O2 Sat by Pulse Oximetry (%) Laboratory Tests 04/05/18 04/06/18 04/06/18 09:15 08:00 08:00 WBC 5.3 RBC 3.48 L Hgb 10.9 L Hct 31.9 L MCV 91.7 MCH 31.3 MCHC 34.1 RDW 13.8 Plt Count 153 D MPV 10.7 Sodium 141 Potassium 4.0 Chloride 104 Carbon Dioxide 32 Anion Gap 5 L BUN 11 D Creatinine 0.8 Creat Clearance w eGFR > 60 Random Glucose 114 H D Calcium 8.1 L Total Bilirubin 0.2 D AST 14 L D ALT 12 D Alkaline Phosphatase 81 Total Protein 7.2 Albumin 2.7 L D Urine Color Straw Urine Appearance Clear Urine pH 8.0 D Ur Specific [place] 1.005 Urine Protein Negative Urine Glucose (UA) Negative Urine Ketones Negative Urine Blood Negative Urine Nitrite Negative Urine Bilirubin Negative Urine Urobilinogen 2.0 Ur Leukocyte Esterase Trace Urine WBC (Auto) 2 Urine RBC (Auto) <1 RPR Titer 04/06/18 08:00 WBC RBC Hgb Hct MCV MCH MCHC RDW Plt Count MPV Sodium Potassium Chloride Carbon Dioxide Anion Gap BUN Creatinine Creat Clearance w eGFR Random Glucose Calcium Total Bilirubin AST ALT Alkaline Phosphatase Total Protein Albumin Urine Color Urine Appearance Urine pH Ur Specific [place] Urine Protein Urine Glucose (UA) Urine Ketones Urine Blood Urine Nitrite Urine Bilirubin Urine Urobilinogen Ur Leukocyte Esterase Urine WBC (Auto) Urine RBC (Auto) RPR Titer Nonreactive LABS NOTED. Assessment: 04/09/18 14:01 COMPLETION OF DETOX REGIMEN. Plan: PATIENT SCHEDULED FOR DISCHARGE FROM DETOX UNIT TODAY. PATIENT PLANS ON GOING ON TO [facility] ([email or web address] FOR AFTERCARE. AUTHORIZATION BY PATIENT'S INSURANCE COMPANY FOR REHAB ADMISSION IS PENDING A THIS TIME. PATIENT IS PERMITTED TO REMAIN ON DETOX UNIT UNTIL TOMORROW (IF NECESSARY) WHILE WAITING FOR AUTHORIZATION FROM INSURANCE COMPANY.
--- NOTE | 2018-04-09 17:22 | HP ---
RENARD HAYES Rehab Assess/Revision - Admission History Admitted to Rehab from: [facility] [place] Date of Admission to Rehab: 04/09/18 - Vital signs Vital Signs: Vital Signs Period Temp Pulse Resp BP Sys/Khan Pulse Ox Last 24 Hr 95.8 F-102.7 F 62-107 16-20 84-125/51-69 - Findings Detox History & Physical reviewed: Yes Concur with findings: Yes Inpatient Rehab Admission - Initial Determination Are CD services needed?: Yes Free of communicable disease: Yes Not in need of hospitalization: Yes - Rehab Admission Criteria Previous failed treatment: Yes Poor recovery environment: Yes Comorbidities: Yes Lacks judgement: Yes Patient is meeting Inpatient Rehab admission criteria:: Yes
[2018-04-09] MEDS: THIAMINE HCL 100 MG TABLET (FP) PO SCH (21:33)
[2018-04-10 07:15] VITALS: BP 95/59; PULSE 69; TEMP 98.6
[2018-04-10] MEDS: FERROUS SO4 325 MG TABLET (FP) PO SCH (07:31)
[2018-04-10] MEDS ORDERED: METHADONE HCL 10 MG TABLET ONE (08:48)
[2018-04-10] MEDS ORDERED: METHADONE HCL 40 MG DISPERSABLE TABLET ONE (08:49)
[2018-04-10] MEDS: METHADONE 80 MG, METHADONE 20 MG PO SCH (10:27)
[2018-04-10] MEDS: PRENATAL VITAMINS W/ FOLIC ACID TABLET (FP) PO SCH (10:27)
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
== END 2018-04-09 19:41 | disposition other institution (70) | DRG 897 ==
LOC: YASAS 10:51 → Y3N 12:09 → UNDODISIN 04-09 19:41 → Y5N 04-09 19:41
PROVIDERS: ADMIT Internal Medicine; ATTEND Internal Medicine
PROC: HZ2ZZZZ Detoxification Services for Substance Abuse Treatment (ICD-10-PCS; principal; 2018-04-05)
DX: F10.230 Alcohol dependence with withdrawal, uncomplicated (principal); F11.20 Opioid dependence, uncomplicated; F14.20 Cocaine dependence, uncomplicated; F17.213 Nicotine dependence, cigarettes, with withdrawal; D64.9 Anemia, unspecified; B19.20 Unspecified viral hepatitis C without hepatic coma; Z87.438 Personal history of other diseases of male genital organs; Z86.11 Personal history of tuberculosis
CPT/HCPCS: 36415; 80053; 81003; 81015; 85027; 86593; 93005; 93010

== ENCOUNTER 2018-04-09 19:43 | Inpatient (IN) | payer OTHER ==
[2018-04-10] MEDS ORDERED: guaiFENesin/D-METHORPHAN HB 10 ML UNIT-DOSE CUPS PO PRN (17:28)
[2018-04-10] MEDS ORDERED: hydrOXYzine PAMOATE 50 MG CAPSULE (FP) PO PRN (17:28)
[2018-04-10] MEDS ORDERED: MENTHOL/PHENOL 1 EACH UD MM PRN (17:28)
[2018-04-10] MEDS ORDERED: P-EPHED 60MG/TRIPROLIDI 2.5MG TABLET PO PRN (17:28)
[2018-04-10] MEDS ORDERED: MAGNESIUM HYDROX 2400MG/30ML ORAL SUSPENSION 30 ML CUP PO PRN (17:28)
[2018-04-10] MEDS ORDERED: MAG HYDROX/AL HYDROX/SIMETH 30 ML UNIT-DOSE CUP PO PRN (17:28)
[2018-04-10] MEDS ORDERED: LOPERAMIDE HCL 2 MG CAPSULE PO PRN (17:28)
[2018-04-10] MEDS ORDERED: MAGNESIUM CITRATE 300 ML BOTTLE PO PRN (17:28)
[2018-04-10] MEDS ORDERED: ACETAMINOPHEN 325 MG TABLET (FP) PO PRN (17:28)
[2018-04-10] MEDS ORDERED: NICOTINE POLACRILEX 2 MG GUM BUC PRN (17:29)
--- NOTE | 2018-04-10 17:31 | HP ---
RENARD HAYES Rehab Assess/Revision - Admission History Admitted to Rehab from: [facility] Date of Admission to Rehab: 04/09/18 - Findings Detox History & Physical reviewed: Yes Concur with findings: Yes Inpatient Rehab Admission - Initial Determination Are CD services needed?: Yes Free of communicable disease: Yes Not in need of hospitalization: Yes - Rehab Admission Criteria Previous failed treatment: Yes Poor recovery environment: Yes Comorbidities: Yes Lacks judgement: Yes Patient is meeting Inpatient Rehab admission criteria:: Yes
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
[2018-04-10] MEDS: THIAMINE HCL 100 MG TABLET (FP) PO SCH (21:40)
[2018-04-10] MEDS ORDERED: MELATONIN 5 MG TABLETS PO PRN (22:00)
[2018-04-11] MEDS ORDERED: METHADONE HCL 10 MG TABLET PO ONE (09:46)
[2018-04-11] MEDS ORDERED: METHADONE 80 MG, METHADONE 20 MG PO ONE (10:00)
[2018-04-11] MEDS ORDERED: METHADONE HCL 10 MG TABLET ONE (10:26)
[2018-04-11] MEDS ORDERED: METHADONE HCL 40 MG DISPERSABLE TABLET ONE (10:26)
[2018-04-11] MEDS: PRENATAL VITAMINS W/ FOLIC ACID TABLET (FP) PO SCH (10:29)
[2018-04-11] MEDS: NICOTINE 14 MG/24 HOURS TOPICAL PATCH TD SCH (10:31)
[2018-04-11] MEDS: THIAMINE HCL 100 MG TABLET (FP) PO SCH (21:18)
[2018-04-12] MEDS ORDERED: METHADONE HCL 10 MG TABLET ONE (05:09)
[2018-04-12] MEDS ORDERED: METHADONE HCL 40 MG DISPERSABLE TABLET ONE (05:10)
[2018-04-12] MEDS: METHADONE 80 MG, METHADONE 20 MG PO SCH (06:35)
[2018-04-12] MEDS ORDERED: METHADONE HCL 40 MG DISPERSABLE TABLET PO SCH (07:00)
[2018-04-12] MEDS: NICOTINE 14 MG/24 HOURS TOPICAL PATCH TD SCH (10:00)
[2018-04-12] MEDS: PRENATAL VITAMINS W/ FOLIC ACID TABLET (FP) PO SCH (10:00)
[2018-04-12] MEDS: THIAMINE HCL 100 MG TABLET (FP) PO SCH (21:48)
[2018-04-13] MEDS ORDERED: METHADONE HCL 40 MG DISPERSABLE TABLET ONE (02:29)
[2018-04-13] MEDS ORDERED: METHADONE HCL 10 MG TABLET ONE (02:29)
[2018-04-13] MEDS: METHADONE 80 MG, METHADONE 20 MG PO SCH (06:27)
[2018-04-13] MEDS: PRENATAL VITAMINS W/ FOLIC ACID TABLET (FP) PO SCH (10:01)
[2018-04-13] MEDS: NICOTINE 14 MG/24 HOURS TOPICAL PATCH TD SCH (10:02)
[2018-04-13] MEDS: THIAMINE HCL 100 MG TABLET (FP) PO SCH (21:27)
[2018-04-14] MEDS ORDERED: METHADONE HCL 10 MG TABLET ONE (04:15)
[2018-04-14] MEDS ORDERED: METHADONE HCL 40 MG DISPERSABLE TABLET ONE (04:16)
[2018-04-14] MEDS: METHADONE 80 MG, METHADONE 20 MG PO SCH (06:16)
[2018-04-14] MEDS: PRENATAL VITAMINS W/ FOLIC ACID TABLET (FP) PO SCH (10:19)
[2018-04-14] MEDS: NICOTINE 14 MG/24 HOURS TOPICAL PATCH TD SCH (10:19)
[2018-04-14] MEDS: THIAMINE HCL 100 MG TABLET (FP) PO SCH (21:26)
[2018-04-14] MEDS: IBUPROFEN 400 MG TABLET (FP) PO PRN (21:27)
[2018-04-15] MEDS ORDERED: METHADONE HCL 10 MG TABLET ONE (03:18)
[2018-04-15] MEDS ORDERED: METHADONE HCL 40 MG DISPERSABLE TABLET ONE (03:19)
[2018-04-15] MEDS: METHADONE 80 MG, METHADONE 20 MG PO SCH (06:21)
[2018-04-15] MEDS: PRENATAL VITAMINS W/ FOLIC ACID TABLET (FP) PO SCH (10:20)
[2018-04-15] MEDS: NICOTINE 14 MG/24 HOURS TOPICAL PATCH TD SCH (10:20)
[2018-04-15] MEDS: IBUPROFEN 400 MG TABLET (FP) PO PRN (18:14)
[2018-04-15] MEDS: THIAMINE HCL 100 MG TABLET (FP) PO SCH (21:36)
[2018-04-16] MEDS ORDERED: METHADONE HCL 10 MG TABLET ONE (04:13)
[2018-04-16] MEDS ORDERED: METHADONE HCL 40 MG DISPERSABLE TABLET ONE (04:13)
[2018-04-16] MEDS: METHADONE 80 MG, METHADONE 20 MG PO SCH (06:34)
[2018-04-16 06:57] VITALS: BP 122/76; PULSE 73; TEMP 98.5
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
[2018-04-16] MEDS: PRENATAL VITAMINS W/ FOLIC ACID TABLET (FP) PO SCH (10:35)
[2018-04-16] MEDS: NICOTINE 14 MG/24 HOURS TOPICAL PATCH TD SCH (10:35)
[2018-04-16] MEDS: IBUPROFEN 400 MG TABLET (FP) PO PRN (10:36)
== END 2018-04-16 11:25 | disposition home or self-care (01) | DRG 895 ==
LOC: YASAS 19:43 → Y5N 19:44
PROVIDERS: ADMIT Psychiatry & Neurology Psychiatry; ATTEND Psychiatry & Neurology Psychiatry
PROC: HZ42ZZZ Group Counseling for Substance Abuse Treatment, Cognitive-Behavioral (ICD-10-PCS; principal; 2018-04-09)
DX: F11.20 Opioid dependence, uncomplicated (principal); F14.20 Cocaine dependence, uncomplicated; F17.213 Nicotine dependence, cigarettes, with withdrawal; F10.20 Alcohol dependence, uncomplicated

== ENCOUNTER 2018-11-05 12:16 | Inpatient (IN) | payer OTHER ==
[2018-11-05 13:31] VITALS: BMI 21.9
--- NOTE | 2018-11-05 15:02 | HP ---
CIWA Score Nausea/Vomitin-No Nausea/No Vomiting Muscle Tremors: 3 Anxiety: 4-Mod. Anxious/Guarded Agitation: 4-Moderately Restless Paroxysmal Sweats: 3 Orientation: 0-Oriented Tacttile Disturbances: 0-None Auditory Disturbances: 0-None Visual Disturbances: 0-None Headache: 0-None Present CIWA-Ar Total Score: 14 - Admission Criteria [facility]ASAS Guidelines: Admission for Medically Managed Detox: Requires at least one of the followin. CIWA greater than 12 2. Seizures within the past 24 hours 3. Delirium tremens within the past 24 hours 4. Hallucinations within the past 24 hours 5. Acute intervention needed for co occurring medical disorder 6. Acute intervention needed for co occurring psychiatric disorder 7. Severe withdrawal that cannot be handled at a lower level of care (continued vomiting, continued diarrhea, abnormal vital signs) requiring intravenous medication and/or fluids 8. Admission ROS [facility] Chief Complaint: I am here for detox I was sober for 19yrs and recently relapsed. Allergies/Adverse Reactions: Allergies Allergy/AdvReac Type Severity Reaction Status Date / Time No Known Allergies Allergy Verified 11/05/18 14:27 History of Present Illness: pt is a 68yr old male with a history of alcohol and cocaine dependence seeking detox for treatment. Pt is currently in a MMTP program currently on 100mg last dose received today. pending verification. Exam Limitations: No Limitations - Ebola screening Have you traveled outside of the country in the last 21 days: No Have you had contact with anyone from an Ebola affected area: No Have you been sick,other than usual withdrawal symptoms: No Do you have a fever: No - Review of Systems Constitutional: Chills, Loss of Appetite, Night Sweats EENT: reports: No Symptoms Reported, Dental Problems (missinf teeth) Respiratory: reports: No Symptoms reported GI: reports: Constipated, Poor Fluid Intake, Abdominal cramping : reports: No Symptoms Reported Musculoskeletal: reports: Joint Pain Integumentary: reports: Flushing, Sweating Neuro: reports: Headache, Tremors Endocrine: reports: Excessive Sweating, Flushing, Intolerance to Cold, Intolerance to Heat Hematology: reports: No Symptoms Reported Psychiatric: reports: Judgement Intact, Mood/Affect Appropiate, Orientated x3, Agitated, Anxious Other Systems: Reviewed and Negative Patient History - Patient Medical History Hx Anemia: No Hx Asthma: No Hx Chronic Obstructive Pulmonary Disease (COPD): No Hx Cancer: No Hx Cardiac Disorders: No Hx Congestive Heart Failure: No Hx Hypertension: No Hx Hypercholesterolemia: No Hx Pacemaker: No HX Cerebrovascular Accident: No Hx Seizures: No Hx Dementia: No Hx Diabetes: No Hx Gastrointestinal Disorders: No Hx Liver Disease: No Hx Genitourinary Disorders: No Hx Sexually Transmitted Disorders: No Hx Renal Disease (ESRD): No Hx Thyroid Disease: No Hx Human Immunodeficiency Virus (HIV): No (negative) Hx Hepatitis C: Yes (treated 6yrs ago) Hx Depression: No Hx Suicide Attempt: No Hx Bipolar Disorder: No Hx Schizophrenia: No - Patient Surgical History Past Surgical History: Yes Hx Neurologic Surgery: No Hx Cataract Extraction: No Hx Cardiac Surgery: No Hx Lung Surgery: No Hx Breast Surgery: No Hx Breast Biopsy: No Hx Abdominal Surgery: No Hx Appendectomy: No Hx Cholecystectomy: No Hx Genitourinary Surgery: No Hx Section: No Hx Orthopedic Surgery: Yes (RIGHT CLAVICLE SURGERY 5-6 YEARS AGO) Anesthesia Reaction: No - PPD History Previous Implant?: Yes Documented Results: Positive w/o proof Date: 06/24/17 Results: CXR(-)05/2017 PPD to be Administered?: No - Reproductive History Patient is a Female of Child Bearing Age (11 -55 yrs old): No - Smoking Cessation Smoking history: Current some day smoker Have you smoked in the past 12 months: No Aproximately how many cigarettes per day: 5 Cigars Per Day: 0 Hx Chewing Tobacco Use: No Initiated information on smoking cessation: Yes 'Breaking Loose' booklet given: 11/05/18 - Substance & Tx. History Hx Alcohol Use: Yes Hx Substance Use: Yes Substance Use Type: Alcohol, Cocaine Hx Substance Use Treatment: No - Substances Abused Heroin Route: Injection Frequency: Daily Amount used: 4-5 bags Age of first use: 16 Date of Last Use: 11/03/18 Alcohol-sheri Route: Oral Frequency: Daily Amount used: 1 pt. Age of first use: 29 Date of Last Use: 11/04/18 Cocaine Route: Injection Frequency: Daily Amount used: $50 Age of first use: 29 Date of Last Use: 11/04/18 Family Disease History - Family Disease History Family Disease History: Diabetes: Mother ( heart attack), Heart Disease : Mother, CA: Father ( prostate), Sister ( breast, drug user), Other: Father, Mother, Brother ( hiv, ivdu), Sister, Son (one - adult - healthy), Daughter (one - adult - healthy) Admission Physical Exam [facility] - Vital Signs Vital Signs: Vital Signs - 24 hr 11/05/18 13:26 Temperature 98.1 F Pulse Rate 74 Respiratory 20 Rate Blood Pressure 112/69 - Physical General Appearance: Yes: Appropriately Dressed, Moderate Distress, Thin, Irritable, Sweating, Anxious HEENTM: Yes: Hearing grossly Normal, Normal Voice, Other (missing teeth) Respiratory: Yes: Lungs Clear, Normal Breath Sounds, No Respiratory Distress Neck: Yes: No masses,lesions,Nodules Breast: Yes: Within Normal Limits Cardiology: Yes: Regular Rhythm, Regular Rate, S1, S2 Abdominal: Yes: Normal Bowel Sounds, Non Tender, Soft Genitourinary: Yes: Within Normal Limits Back: Yes: Normal Inspection Musculoskeletal: Yes: full range of Motion Extremities: Yes: Normal Capillary Refill, Non-Tender, Tremors Neurological: Yes: Fully Oriented, Alert, Normal Response Integumentary: Yes: Normal Color, Diaphoresis Lymphatic: Yes: Within Normal Limits - Diagnostic (1) Alcohol dependence with uncomplicated withdrawal Current Visit: Yes Status: Chronic (2) Cocaine dependence Current Visit: Yes Status: Chronic Qualifiers: Substance use status: uncomplicated (3) Opioid dependence on agonist therapy Current Visit: No Status: Acute (4) Methadone maintenance therapy patient Current Visit: Yes Status: Chronic Comment: dose verified by Annita Yarbrough RN - none taken today - Project Help [phone] (5) Nicotine dependence Current Visit: Yes Status: Chronic Qualifiers: Nicotine product type: cigarettes Substance use status: uncomplicated Qualified Code(s): F17.210 - Nicotine dependence, cigarettes, uncomplicated (6) Hepatitis-C Current Visit: Yes Status: Chronic Qualifiers: Viral hepatitis chronicity: chronic (7) PPD positive, treated Current Visit: Yes Status: Chronic Comment: cxr 06/24/17 normal Cleared for Admission [facility] - Detox or Rehab [facility] Level of Care: Medically Managed Detox Regimen/Protocol: Librium [facility] Breath Alcohol Content Breath Alcohol Content: 0 Urine Drug Screen - Results Drug Screen Negative: No Urine Drug Screen Results: REBECA-Cocaine, OPI-Opiates, MTD-Methadone, OXY- Oxycodone, FEN-Fentanyl
[2018-11-05] MEDS ORDERED: hydrOXYzine PAMOATE 50 MG CAPSULE (FP) PO PRN (15:09)
[2018-11-05] MEDS ORDERED: MENTHOL/PHENOL 1 EACH UD MM PRN (15:09)
[2018-11-05] MEDS ORDERED: LOPERAMIDE HCL 2 MG CAPSULE PO PRN (15:09)
[2018-11-05] MEDS ORDERED: MAGNESIUM CITRATE 300 ML BOTTLE PO PRN (15:09)
[2018-11-05] MEDS ORDERED: ACETAMINOPHEN 325 MG TABLET (FP) PO PRN (15:09)
[2018-11-05] MEDS ORDERED: MAGNESIUM HYDROX 2400MG/30ML ORAL SUSPENSION 30 ML CUP PO PRN (15:09)
[2018-11-05] MEDS ORDERED: IBUPROFEN 400 MG TABLET (FP) PO PRN (15:09)
[2018-11-05] MEDS ORDERED: NICOTINE POLACRILEX 2 MG GUM BUC PRN (15:09)
[2018-11-05] MEDS ORDERED: MAG HYDROX/AL HYDROX/SIMETH 30 ML UNIT-DOSE CUP PO PRN (15:09)
[2018-11-05] MEDS ORDERED: chlordiazePOXIDE HCL 25 MG CAPSULE PO PRN (15:09)
[2018-11-05] MEDS ORDERED: P-EPHED 60MG/TRIPROLIDI 2.5MG TABLET PO PRN (15:09)
[2018-11-05] MEDS ORDERED: guaiFENesin/D-METHORPHAN HB 10 ML UNIT-DOSE CUPS PO PRN (15:09)
[2018-11-05] MEDS ORDERED: chlordiazePOXIDE HCL 25 MG CAPSULE PO ONE (15:45)
[2018-11-05] MEDS: chlordiazePOXIDE HCL 25 MG CAPSULE PO SCH ×2 (17:38→22:27)
[2018-11-05] MEDS ORDERED: MELATONIN 5 MG TABLETS PO PRN (22:00)
[2018-11-05] MEDS: THIAMINE HCL 100 MG TABLET (FP) PO SCH (22:27)
[2018-11-06] MEDS: chlordiazePOXIDE HCL 25 MG CAPSULE PO SCH ×4 (05:30→22:22)
[2018-11-06] MEDS ORDERED: METHADONE HCL 10 MG TABLET PO ONE (08:34)
[2018-11-06] MEDS ORDERED: METHADONE 80 MG, METHADONE 20 MG PO ONE (08:50)
[2018-11-06] MEDS ORDERED: METHADONE HCL 10 MG TABLET ONE (09:08)
[2018-11-06] MEDS ORDERED: METHADONE HCL 40 MG DISPERSABLE TABLET ONE (09:08)
[2018-11-06 10:45] LABS: HEMATOCRIT 30.5 % (35.4-49); HEMOGLOBIN 9.9 GM/dL (11.7-16.9); MCH 31.4 pg (25.7-33.7); MCHC 32.5 g/dl (32.0-35.9); MEAN CELL VOLUME 96.6 fl (80-96); MEAN PLT VOLUME 10.8 fl (7.5-11.1); PLATELET COUNT 136 K/MM3 (134-434); RBC 3.15 M/mm3 (4.00-5.60); RDW 14.6 % (11.9-15.9); WHITE BLOOD COUNT 3.6 K/mm3 (4.0-10.0)
[2018-11-06] MEDS: PRENATAL VITAMINS W/ FOLIC ACID TABLET (FP) PO SCH (11:05)
[2018-11-06] MEDS: NICOTINE 14 MG/24 HOURS TOPICAL PATCH TD SCH (11:05)
[2018-11-06 11:55] LABS: ALBUMIN 3.4 g/dl (3.4-5.0); ALK PHOS 102 U/L (45-117); ANION GAP 7 MMOL/L (8-16); BILIRUBIN,TOTAL 0.2 mg/dL (0.2-1); BLOOD UREA NITROGEN 18 mg/dL (7-18); CALCIUM 8.5 mg/dL (8.5-10.1); CHLORIDE 105 mmol/L (98-107); CO2 28 mmol/L (21-32); CREATININE 0.9 mg/dL (0.55-1.3); GLUCOSE,RANDOM 110 mg/dL (74-106); POTASSIUM 4.1 mmol/L (3.5-5.1); SGOT/AST 25 U/L (15-37); SGPT/ALT 17 U/L (13-61); SODIUM 139 mmol/L (136-145); TOT PROT 7.7 g/dl (6.4-8.2)
--- NOTE | 2018-11-06 13:46 | PN ---
[facility] CIWA - CIWA Score Nausea/Vomitin-No Nausea/No Vomiting Muscle Tremors: 3 Anxiety: 3 Agitation: 3 Paroxysmal Sweats: 3 Orientation: 0-Oriented Tacttile Disturbances: 0-None Auditory Disturbances: 0-None Visual Disturbances: 0-None Headache: 1-Very Mild CIWA-Ar Total Score: 13 S Progress Note (SOAP) Subjective: sweats shakes body aches tired interrupted sleep Objective: 11/06/18 13:45 Vital Signs Temperature 97.5 F L 11/06/18 09:19 Pulse Rate 65 11/06/18 09:19 Respiratory Rate 18 11/06/18 09:19 Blood Pressure 136/81 11/06/18 09:19 O2 Sat by Pulse Oximetry (%) Laboratory Tests 11/06/18 11/06/18 11/06/18 06:00 06:00 06:00 WBC 3.6 L RBC 3.15 L Hgb 9.9 L Hct 30.5 L MCV 96.6 H MCH 31.4 MCHC 32.5 RDW 14.6 Plt Count 136 MPV 10.8 Sodium 139 Potassium 4.1 Chloride 105 Carbon Dioxide 28 Anion Gap 7 L BUN 18 Creatinine 0.9 Creat Clearance w eGFR > 60 Random Glucose 110 H Calcium 8.5 Total Bilirubin 0.2 AST 25 ALT 17 Alkaline Phosphatase 102 Total Protein 7.7 Albumin 3.4 RPR Titer Nonreactive aaox3 ambulating no acute distress Assessment: 11/06/18 13:45 withdrawal sx Plan: continue detox increase fluids motrin/tylenol prn
[2018-11-06] MEDS: THIAMINE HCL 100 MG TABLET (FP) PO SCH (22:22)
[2018-11-07] MEDS ORDERED: METHADONE HCL 40 MG DISPERSABLE TABLET ONE (04:53)
[2018-11-07] MEDS ORDERED: METHADONE HCL 10 MG TABLET ONE (04:54)
[2018-11-07] MEDS: METHADONE 80 MG, METHADONE 20 MG PO SCH (05:27)
[2018-11-07] MEDS ORDERED: METHADONE HCL 40 MG DISPERSABLE TABLET PO SCH (06:00)
[2018-11-07] MEDS: chlordiazePOXIDE HCL 25 MG CAPSULE PO SCH ×2 (07:13→10:18)
[2018-11-07] MEDS: NICOTINE 14 MG/24 HOURS TOPICAL PATCH TD SCH (10:17)
[2018-11-07] MEDS: PRENATAL VITAMINS W/ FOLIC ACID TABLET (FP) PO SCH (10:17)
--- NOTE | 2018-11-07 11:14 | PN ---
[facility] CIWA - CIWA Score Nausea/Vomitin-No Nausea/No Vomiting Muscle Tremors: 3 Anxiety: 2 Agitation: 3 Paroxysmal Sweats: 2 Orientation: 0-Oriented Tacttile Disturbances: 0-None Auditory Disturbances: 0-None Visual Disturbances: 0-None Headache: 0-None Present CIWA-Ar Total Score: 10 S Progress Note (SOAP) Subjective: agitation anxiety sweats interrupted sleep Objective: 11/07/18 11:14 Vital Signs Temperature 97.7 F 11/07/18 09:41 Pulse Rate 74 11/07/18 09:41 Respiratory Rate 16 11/07/18 09:41 Blood Pressure 128/71 11/07/18 09:41 O2 Sat by Pulse Oximetry (%) Laboratory Tests 11/06/18 11/06/18 11/06/18 06:00 06:00 06:00 WBC 3.6 L RBC 3.15 L Hgb 9.9 L Hct 30.5 L MCV 96.6 H MCH 31.4 MCHC 32.5 RDW 14.6 Plt Count 136 MPV 10.8 Sodium 139 Potassium 4.1 Chloride 105 Carbon Dioxide 28 Anion Gap 7 L BUN 18 Creatinine 0.9 Creat Clearance w eGFR > 60 Random Glucose 110 H Calcium 8.5 Total Bilirubin 0.2 AST 25 ALT 17 Alkaline Phosphatase 102 Total Protein 7.7 Albumin 3.4 RPR Titer Nonreactive aaox3 ambulating no acute distress Assessment: 11/07/18 11:14 withdrawal sx Plan: continue detox increase fluids
[2018-11-07] MEDS: chlordiazePOXIDE 5 MG CAPSULE PO SCH ×2 (17:51→22:10)
[2018-11-07] MEDS: THIAMINE HCL 100 MG TABLET (FP) PO SCH (22:10)
[2018-11-08] MEDS ORDERED: METHADONE HCL 40 MG DISPERSABLE TABLET ONE (04:32)
[2018-11-08] MEDS ORDERED: METHADONE HCL 10 MG TABLET ONE (04:32)
[2018-11-08] MEDS: chlordiazePOXIDE 5 MG CAPSULE PO SCH ×2 (05:25→10:06)
[2018-11-08] MEDS: METHADONE 80 MG, METHADONE 20 MG PO SCH (05:25)
[2018-11-08] MEDS: NICOTINE 14 MG/24 HOURS TOPICAL PATCH TD SCH (10:06)
[2018-11-08] MEDS: PRENATAL VITAMINS W/ FOLIC ACID TABLET (FP) PO SCH (10:06)
--- NOTE | 2018-11-08 16:22 | PN ---
[facility] Progress Note (SOAP) Subjective: Pt here for detox from alcohol and cocaine use O: Vital Signs - 24 hr 11/07/18 11/07/18 11/07/18 17:53 18:52 22:42 Temperature 97 F L Pulse Rate 81 80 Respiratory 16 18 Rate Blood Pressure 121/71 121/77 110/54 L 11/08/18 11/08/18 11/08/18 00:30 03:30 07:10 Temperature Pulse Rate 84 Respiratory 18 18 18 Rate Blood Pressure 113/76 11/08/18 11/08/18 09:55 14:33 Temperature 97.3 F L 97.5 F L Pulse Rate 82 68 Respiratory 18 18 Rate Blood Pressure 107/61 121/74 Laboratory Tests 11/06/18 11/06/18 11/06/18 06:00 06:00 06:00 WBC 3.6 L RBC 3.15 L Hgb 9.9 L Hct 30.5 L MCV 96.6 H MCH 31.4 MCHC 32.5 RDW 14.6 Plt Count 136 MPV 10.8 Sodium 139 Potassium 4.1 Chloride 105 Carbon Dioxide 28 Anion Gap 7 L BUN 18 Creatinine 0.9 Creat Clearance w eGFR > 60 Random Glucose 110 H Calcium 8.5 Total Bilirubin 0.2 AST 25 ALT 17 Alkaline Phosphatase 102 Total Protein 7.7 Albumin 3.4 RPR Titer Nonreactive anemia alcohol use disorder: continue detox protocol pt needs f/u at discharge for w/u of anemia
[2018-11-08] MEDS: chlordiazePOXIDE HCL 10 MG CAPSULE PO SCH ×2 (17:56→22:20)
[2018-11-08 22:18] VITALS: TEMP 98.1
[2018-11-08] MEDS: THIAMINE HCL 100 MG TABLET (FP) PO SCH (22:19)
[2018-11-09] MEDS ORDERED: METHADONE HCL 40 MG DISPERSABLE TABLET ONE (05:00)
[2018-11-09] MEDS ORDERED: METHADONE HCL 10 MG TABLET ONE (05:00)
[2018-11-09] MEDS: chlordiazePOXIDE HCL 10 MG CAPSULE PO SCH (05:26)
[2018-11-09] MEDS: METHADONE 80 MG, METHADONE 20 MG PO SCH (05:26)
[2018-11-09 07:57] VITALS: BP 139/74; PULSE 73
--- NOTE | 2018-11-09 08:46 | DS ---
[facility] Detox Discharge Summary Admission Date: 11/05/18 Discharge Date: 11/09/18 - History Present History: Alcohol Dependence Additional Comments: 68 years old male admitted on 11/05/18 for alcohol withdrawal stabilization completed alcohol detox regimen tolerated well alert no acute distress aftercare community self help group and meeting Pertinent Past History: patient agrees to return to methadone maintenance program for medical mental and addiction issues - Physical Exam Results Vital Signs: Vital Signs Temperature 98.1 F 11/09/18 04:00 Pulse Rate 73 11/09/18 04:00 Respiratory Rate 18 11/09/18 04:00 Blood Pressure 139/74 11/09/18 04:00 O2 Sat by Pulse Oximetry (%) Pertinent Admission Physical Exam Findings: alcohol withdrawal sx Vital Signs Temperature 98.1 F 11/09/18 04:00 Pulse Rate 73 11/09/18 04:00 Respiratory Rate 18 11/09/18 04:00 Blood Pressure 139/74 11/09/18 04:00 O2 Sat by Pulse Oximetry (%) Laboratory Last Values WBC 3.6 K/mm3 (4.0-10.0) L 11/06/18 06:00 RBC 3.15 M/mm3 (4.00-5.60) L 11/06/18 06:00 Hgb 9.9 GM/dL (11.7-16.9) L 11/06/18 06:00 Hct 30.5 % (35.4-49) L 11/06/18 06:00 MCV 96.6 fl (80-96) H 11/06/18 06:00 MCH 31.4 pg (25.7-33.7) 11/06/18 06:00 MCHC 32.5 g/dl (32.0-35.9) 11/06/18 06:00 RDW 14.6 % (11.9-15.9) 11/06/18 06:00 Plt Count 136 K/MM3 (134-434) 11/06/18 06:00 MPV 10.8 fl (7.5-11.1) 11/06/18 06:00 Sodium 139 mmol/L (136-145) 11/06/18 06:00 Potassium 4.1 mmol/L (3.5-5.1) 11/06/18 06:00 Chloride 105 mmol/L (98-107) 11/06/18 06:00 Carbon Dioxide 28 mmol/L (21-32) 11/06/18 06:00 Anion Gap 7 MMOL/L (8-16) L 11/06/18 06:00 BUN 18 mg/dL (7-18) 11/06/18 06:00 Creatinine 0.9 mg/dL (0.55-1.3) 11/06/18 06:00 Creat Clearance w eGFR > 60 (>60) 11/06/18 06:00 Random Glucose 110 mg/dL (74-106) H 11/06/18 06:00 Calcium 8.5 mg/dL (8.5-10.1) 11/06/18 06:00 Total Bilirubin 0.2 mg/dL (0.2-1) 11/06/18 06:00 AST 25 U/L (15-37) 11/06/18 06:00 ALT 17 U/L (13-61) 11/06/18 06:00 Alkaline Phosphatase 102 U/L (45-117) 11/06/18 06:00 Total Protein 7.7 g/dl (6.4-8.2) 11/06/18 06:00 Albumin 3.4 g/dl (3.4-5.0) 11/06/18 06:00 RPR Titer Nonreactive (NONREACTIVE) 11/06/18 06:00 lab noted - Treatment Hospital Course: Detox Protocol Followed, Detoxed Safely, Responded well, Discharged Condition Good, Rehab Referral Accepted Patient has Accepted a Rehab Referral to: community self help meeting and group - Medication Discharge Medications: Ambulatory Orders NK [No Known Home Medication] 11/05/18 - Diagnosis (1) Hepatitis-C Status: Chronic Qualifiers: Viral hepatitis chronicity: chronic Hepatic coma status: without hepatic coma Qualified Code(s): B18.2 - Chronic viral hepatitis C (2) PPD positive, treated Status: Resolved (3) Alcohol dependence with uncomplicated withdrawal Status: Acute (4) Methadone maintenance therapy patient Status: Chronic - AMA Did Patient Leave Against Medical Advice: No
== END 2018-11-09 09:21 | disposition home or self-care (01) | DRG 897 ==
LOC: YASAS 12:16 → Y6N 15:37
PROC: HZ2ZZZZ Detoxification Services for Substance Abuse Treatment (ICD-10-PCS; principal; 2018-11-05)
DX: F10.230 Alcohol dependence with withdrawal, uncomplicated (principal); F11.20 Opioid dependence, uncomplicated; F14.20 Cocaine dependence, uncomplicated; F17.210 Nicotine dependence, cigarettes, uncomplicated; B18.2 Chronic viral hepatitis C; R76.11 Nonspecific reaction to tuberculin skin test without active tuberculosis
CPT/HCPCS: 36415; 71046-TC-FY; 80053; 85027; 86593